=== PATIENT | female | born 1935 | race Caucasian/White ===

== ENCOUNTER 2024-10-20 19:36 | Inpatient (IN) ==
[2024-10-20 20:38] LABS: Basophils # (Auto) 0.02 K/mcL (0.00-0.30); Basophils % (Auto) 0.1 % (0.0-2.0); Eosinophils # (Auto) 0.02 K/mcL (0.00-0.70); Eosinophils % (Auto) 0.1 % (0.0-7.0); Hematocrit 39.2 % (34.1-44.9); Hemoglobin 12.7 g/dL (11.2-15.7); Lymphocytes % (Auto) 7.8 % (15.5-49.0); Mean Cell Volume 90.7 fL (80.0-100.0); Mean Corpuscular HGB Conc 32.4 g/dL (31.0-36.0); Mean Platelet Volume 11.2 fL (8.8-12.5); Monocytes % (Auto) 5.8 % (1.0-12.0); Neutrophils % (Auto) 85.9 % (38.0-78.0); Platelet Count 196 K/mcL (140-440); RBC 4.32 M/mcL (3.59-5.38); Red Cell Distribution Width 12.6 % (11.5-14.5); WBC 15.4 K/mcL (4.5-11.0)
[2024-10-20 20:46] LABS: Appearance,Urine Clear (Clear); Bacteria,Urine 0 /hpf ({null, 0}); Bilirubin,Urine Negative (Negative); Color,Urine Yellow; Glucose,Urine (UA) 500 mg/dL (Negative); Ketones,Urine Negative (Negative); Leukocyte Esterase,Urine Negative /uL (Negative); Nitrate,Urine Negative (Negative); Protein,Urine >=300 mg/dL (Negative); Specific Gravity,Urine 1.025 (1.000-1.035); Urine Blood Small ery/mcL (Negative); Urine RBC 4 /hpf (0-3); Urine Squamous Epithelial Cell 1 /hpf (0-4); Urine WBC 1 /hpf (0-4); Urobilinogen,Urine Normal
[2024-10-20 20:56] LABS: ALT/SGPT 10 U/L (<40); AST/SGOT 19 U/L (<32); Albumin 3.8 gm/dL (3.2-5.2); Albumin/Globulin Ratio 0.9 (1.0-2.3); Alkaline Phosphatase 140 U/L (39-117); Bilirubin,Total 0.6 mg/dL (0.1-1.0); Blood Urea Nitrogen 29 mg/dL (8-23); Calcium 9.7 mg/dL (8.6-10.4); Carbon Dioxide 21 mmol/L (22-30); Chloride 100 mmol/L (96-108); Globulin 4.1 gm/dL (2.2-3.7); Glomerular Filtration Rate 36; Glucose 265 mg/dL (70-105); Potassium 4.7 mmol/L (3.3-5.1); Sodium 135 mmol/L (133-145)
[2024-10-20] MEDS: IPRATROPIUM/ALBUTEROL 3 ML AMPUL.NEB NEB ONE (21:00)
[2024-10-20] MEDS: LORazepam 2 MG/ML VIAL IV ONE (21:07)
[2024-10-20] MEDS: FUROSEMIDE 20 MG/2 ML VIAL IV ONE (21:26)
[2024-10-20] MEDS: NITROGLYCERIN 1 GM OINT.TOP TD ONE (21:29)
[2024-10-20] MEDS: cefTRIAXone 1 GM VIAL IV ONE (21:29)
[2024-10-21] MEDS ORDERED: ONDANSETRON 4 MG/2 ML VIAL IV PRN (03:57)
[2024-10-21 04:22] LABS: Pro:Crea Ratio 2.27 (<0.20)
[2024-10-21] MEDS ORDERED: DEXTROSE 50% 50 ML VIAL IV PRN (07:31)
[2024-10-21] MEDS ORDERED: DEXTROSE 31 GM ORAL.SUSP PO PRN (07:31)
[2024-10-21 08:18] LABS: Basophils # (Auto) 0.03 K/mcL (0.00-0.30); Basophils % (Auto) 0.3 % (0.0-2.0); Eosinophils # (Auto) 0 K/mcL (0.00-0.70); Eosinophils % (Auto) 0 % (0.0-7.0); Hematocrit 33.2 % (34.1-44.9); Hemoglobin 10.6 g/dL (11.2-15.7); Lymphocytes # (Auto) 1.47 K/mcL (1.50-4.80); Mean Cell Volume 92.2 fL (80.0-100.0); Mean Corpuscular HGB Conc 31.9 g/dL (31.0-36.0); Mean Platelet Volume 11.5 fL (8.8-12.5); Neutrophils % (Auto) 78.5 % (38.0-78.0); Platelet Count 163 K/mcL (140-440); Red Cell Distribution Width 12.8 % (11.5-14.5); WBC 11.3 K/mcL (4.5-11.0)
[2024-10-21 08:24] LABS: Albumin 3.2 gm/dL (3.2-5.2); Blood Urea Nitrogen 30 mg/dL (8-23); Calcium 8.9 mg/dL (8.6-10.4); Carbon Dioxide 23 mmol/L (22-30); Chloride 104 mmol/L (96-108); Glomerular Filtration Rate 33; Glucose 182 mg/dL (70-105); Phosphorous 3.6 mg/dL (2.5-4.5); Potassium 4.2 mmol/L (3.3-5.1); Sodium 139 mmol/L (133-145)
[2024-10-21 09:13] LABS: Estimated Average Glucose(eAG) 183 mg/dL
[2024-10-21] MEDS: FUROSEMIDE 40 MG/4 ML VIAL IV SCH ×2 (09:33→14:20)
[2024-10-21] MEDS: HEPARIN 5,000 UNIT/ML VIAL SQ SCH (09:33)
[2024-10-21] MEDS: INSULIN LISPRO 1 UNIT/0.01 ML UNIT SQ SCH (09:33)
[2024-10-21] MEDS: amLODIPine 5 MG TABLET PO SCH (16:55)
[2024-10-21] MEDS: ROSUVASTATIN 10 MG TABLET PO SCH (20:29)
[2024-10-21] MEDS: 0.9 % SODIUM CHLORIDE 10 ML SYRINGE IV SCH (20:31)
[2024-10-22 05:50] LABS: Basophils # (Auto) 0.04 K/mcL (0.00-0.30); Basophils % (Auto) 0.5 % (0.0-2.0); Eosinophils # (Auto) 0.33 K/mcL (0.00-0.70); Hematocrit 34.5 % (34.1-44.9); Hemoglobin 11.2 g/dL (11.2-15.7); Lymphocytes # (Auto) 2.45 K/mcL (1.50-4.80); Lymphocytes % (Auto) 29.4 % (15.5-49.0); Mean Corpuscular HGB Conc 32.5 g/dL (31.0-36.0); Mean Platelet Volume 11.5 fL (8.8-12.5); Monocytes # (Auto) 0.89 K/mcL (0.10-0.90); Monocytes % (Auto) 10.7 % (1.0-12.0); Neutrophils % (Auto) 55.3 % (38.0-78.0); Platelet Count 168 K/mcL (140-440); RBC 3.79 M/mcL (3.59-5.38); WBC 8.3 K/mcL (4.5-11.0)
[2024-10-22 06:17] LABS: Albumin 3.3 gm/dL (3.2-5.2); Blood Urea Nitrogen 38 mg/dL (8-23); Carbon Dioxide 28 mmol/L (22-30); Chloride 97 mmol/L (96-108); Glomerular Filtration Rate 30; Glucose 168 mg/dL (70-105); Phosphorous 3.8 mg/dL (2.5-4.5); Potassium 3.9 mmol/L (3.3-5.1); Sodium 136 mmol/L (133-145)
[2024-10-22] MEDS: FUROSEMIDE 40 MG/4 ML VIAL IV SCH (08:27)
[2024-10-22] MEDS: FUROSEMIDE 40 MG TABLET PO SCH (08:32)
[2024-10-22] MEDS: ASPIRIN 81 MG TAB.CHEW PO SCH (08:32)
[2024-10-22] MEDS ORDERED: LISINOPRIL 20 MG TABLET PO SCH (09:00)
[2024-10-22] MEDS ORDERED: acetaZOLAMIDE SOD 500 MG VIAL IV SCH (09:00)
[2024-10-22] MEDS: HEPARIN 5,000 UNIT/ML VIAL SQ SCH (20:15)
[2024-10-23 06:53] LABS: ALT/SGPT 8 U/L (<40); AST/SGOT 18 U/L (<32); Albumin 3.4 gm/dL (3.2-5.2); Albumin/Globulin Ratio 0.9 (1.0-2.3); Alkaline Phosphatase 108 U/L (39-117); Bilirubin,Direct < 0.2 mg/dL (0-0.3); Bilirubin,Total 0.4 mg/dL (0.1-1.0); Blood Urea Nitrogen 47 mg/dL (8-23); Calcium 9.2 mg/dL (8.6-10.4); Carbon Dioxide 25 mmol/L (22-30); Chloride 96 mmol/L (96-108); Globulin 3.7 gm/dL (2.2-3.7); Glomerular Filtration Rate 30; Glucose 245 mg/dL (70-105); Lactate Dehydrogenase 179 U/L (135-225); Potassium 3.9 mmol/L (3.3-5.1); Sodium 136 mmol/L (133-145); Triglycerides 149 mg/dL (<150); Uric Acid 8.5 mg/dL (2.5-8.0)
[2024-10-23 06:56] LABS: Albumin 3.4 gm/dL (3.2-5.2); Blood Urea Nitrogen 47 mg/dL (8-23); Calcium 9.3 mg/dL (8.6-10.4); Carbon Dioxide 25 mmol/L (22-30); Chloride 97 mmol/L (96-108); Glomerular Filtration Rate 30; Glucose 247 mg/dL (70-105); Potassium 3.9 mmol/L (3.3-5.1); Sodium 136 mmol/L (133-145)
[2024-10-23] MEDS: INSULIN LISPRO 1 UNIT/0.01 ML UNIT SQ SCH (12:03)
[2024-10-23] MEDS: CARVEDILOL 12.5 MG TABLET PO SCH (12:04)
[2024-10-24] MEDS: INSULIN GLARGINE, HUMAN 1 UNIT/0.01 ML SQ SCH (08:44)
== END 2024-10-24 13:10 | disposition home or self-care (01) | DRG 189 ==
LOC: ED 19:36 → ICU 10-21 04:06
PROVIDERS: ADMIT Internal Medicine; ATTEND Internal Medicine